=== PATIENT | male | born 1985 | race Caucasian/White ===

== ENCOUNTER 2017-12-20 14:47 | Emergency (ER) | payer OTHER ==
[~2017-12-20] VITALS: Ht 172.7 cm; Wt 77.3 kg
[~2017-12-20 14:47] MED LIST: LORA1TAB3 PO
[2017-12-20] MEDS ORDERED: FLUO-191 PO (15:24)
[2017-12-20] MEDS ORDERED: CLON.5 PO (15:24)
[2017-12-20] MEDS ORDERED: IBUPROFEN 800 MG TABLET PO ONE (18:15)
[2017-12-20 18:22] VITALS: BP 127/96
== END 2017-12-20 18:30 | disposition home or self-care (01) ==
LOC: EMS 14:47
DX: S60.021A Contusion of right index finger without damage to nail, initial encounter (principal); F17.210 Nicotine dependence, cigarettes, uncomplicated; X58.XXXA Exposure to other specified factors, initial encounter; Y93.89 Activity, other specified; Y92.89 Other specified places as the place of occurrence of the external cause; Y99.8 Other external cause status
CPT/HCPCS: 99282; 99406

== ENCOUNTER 2018-11-05 07:22 | Emergency (ER) | payer OTHER ==
[~2018-11-05] VITALS: Ht 170.2 cm; Wt 81.8 kg
[~2018-11-05 07:22] MED LIST changes: +CLON.5 PO; +FLUO-191 PO; -LORA1TAB3 PO
[2018-11-05 07:24] VITALS: BP 111/70
== END 2018-11-05 08:19 | disposition left against medical advice (07) ==
LOC: EMS 07:22
DX: M25.512 Pain in left shoulder (principal); Z53.21 Procedure and treatment not carried out due to patient leaving prior to being seen by health care provider

== ENCOUNTER 2018-11-05 17:49 | Emergency (ER) | payer SELFPAY ==
[~2018-11-05] VITALS: Ht 170.2 cm; Wt 84.1 kg
[2018-11-05] MEDS ORDERED: LIDOCAINE/PF 1% 5 ML VIAL INJ ONE (20:15)
[2018-11-05 20:52] VITALS: BP 112/91
== END 2018-11-05 21:55 | disposition home or self-care (01) ==
LOC: EMS 17:49
DX: F41.9 Anxiety disorder, unspecified (principal); F17.210 Nicotine dependence, cigarettes, uncomplicated; F19.10 Other psychoactive substance abuse, uncomplicated; Z79.899 Other long term (current) drug therapy

== ENCOUNTER 2019-04-11 07:58 | Emergency (ER) | payer SELFPAY ==
[~2019-04-11] VITALS: Ht 170.2 cm; Wt 86.4 kg
[~2019-04-11 07:58] MED LIST changes: -FLUO-191 PO
[2019-04-11 08:15] VITALS: BP 157/58
[2019-04-11] MEDS ORDERED: KETOROLAC TROMETHAMINE 60 MG/2 ML VIAL IM ONE (08:45)
== END 2019-04-11 08:54 | disposition home or self-care (01) ==
LOC: EMS 08:01
DX: S86.812A Strain of other muscle(s) and tendon(s) at lower leg level, left leg, initial encounter (principal); R03.0 Elevated blood-pressure reading, without diagnosis of hypertension; F41.9 Anxiety disorder, unspecified; F17.210 Nicotine dependence, cigarettes, uncomplicated; F19.90 Other psychoactive substance use, unspecified, uncomplicated; X50.9XXA Other and unspecified overexertion or strenuous movements or postures, initial encounter; Y93.89 Activity, other specified; Y92.89 Other specified places as the place of occurrence of the external cause; Y99.8 Other external cause status
CPT/HCPCS: 96372; 99283; J1885

== ENCOUNTER 2025-07-19 07:16 | Emergency (ER) | payer MEDICAID ==
[~2025-07-19] VITALS: Ht 170.2 cm; Wt 81.8 kg
[~2025-07-19 07:16] MED LIST changes: +CLON-592 PO; -CLON.5 PO
[2025-07-19 07:22] VITALS: TEMP 97.7
[2025-07-19] MEDS ORDERED: CLON-592 PO (07:25)
[2025-07-19 07:37] LABS: COVID AG,FIA SOURCE NASAL SWAB
[2025-07-19 08:25] LABS: INFLUENZA TYPE A NEGATIVE FOR TYPE A (NEGATIVE); INFLUENZA TYPE B NEGATIVE FOR TYPE B (NEGATIVE); SARS-COV2 (COVID) ANTIGEN,FIA Negative (Negative)
[2025-07-19 08:36] LABS: RAPID GROUP A STREP PRELIM. NEGATIVE (NEGATIVE)
[2025-07-19 09:21] VITALS: BP 112/77; PULSE 68; RESP 18; O2SAT 99
[2025-07-19] MEDS: OXYMETAZOLINE HCL 0.05% 15 ML NASAL SPRAY NASAL ONE (09:21)
== END 2025-07-19 09:33 | disposition home or self-care (01) ==
LOC: EMS 07:16
DX: K14.6 Glossodynia (principal); R09.82 Postnasal drip; F41.9 Anxiety disorder, unspecified; F17.210 Nicotine dependence, cigarettes, uncomplicated; Z87.19 Personal history of other diseases of the digestive system; Z79.899 Other long term (current) drug therapy; Z20.822 Contact with and (suspected) exposure to COVID-19
CPT/HCPCS: 72040; 87081; 87430; 87804; 99284; Z7502; Z7610